=== PATIENT | female | born 1995 | race African-American/Black ===

== ENCOUNTER 2018-09-19 13:55 | Emergency (ER) | payer SELFPAY ==
[~2018-09-19] VITALS: Ht 165.1 cm; Wt 91.2 kg
[2018-09-19 14:14] VITALS: BP 131/81
== END 2018-09-19 14:58 | disposition home or self-care (01) ==
LOC: ER 13:55
DX: F41.9 Anxiety disorder, unspecified (principal); R00.2 Palpitations

== ENCOUNTER 2018-09-24 11:02 | Emergency (ER) | payer SELFPAY ==
[~2018-09-24] VITALS: Ht 165.1 cm; Wt 90.7 kg
[2018-09-24 11:12] VITALS: BP 123/74
[2018-09-24] MEDS ORDERED: ALPRAZOLAM 0.5 MG TABLET PO ONE (11:30)
[2018-09-24] MEDS ORDERED: ALPRAZOLAM 0.5 MG TABLET ONE (11:33)
== END 2018-09-24 12:55 | disposition home or self-care (01) ==
LOC: ER 11:02
DX: F41.9 Anxiety disorder, unspecified (principal)

== ENCOUNTER 2019-06-11 19:45 | Emergency (ER) | payer MEDICAID ==
--- NOTE | 2019-06-11 19:55 | NUR ---
PT NOT IN WAITING ROOM FOR TRIAGE.
--- NOTE | 2019-06-11 20:00 | NUR ---
PT NOT IN WAITING ROOM FOR TRIAGE.
--- NOTE | 2019-06-11 20:05 | NUR ---
PT NOT IN WAITING ROOM FOR TRIAGE.
== END 2019-06-11 21:04 | disposition home or self-care (01) ==
LOC: ER 19:45
DX: Z53.21 Procedure and treatment not carried out due to patient leaving prior to being seen by health care provider (principal)